=== PATIENT | female | born 1965 | race Caucasian/White ===

== ENCOUNTER 2021-10-25 09:19 | Inpatient (IN) | payer OTHER ==
[2021-10-25] VITALS (11 sets, daily range): BP systolic 100–206; BP diastolic 59–94
[~2021-10-25] VITALS: Ht 147.3 cm; Wt 62.0 kg
[~2021-10-25 09:19] MED LIST: SODIUM CHLORIDE 0.9% 1,000 ML ONE
[2021-10-25] MEDS ORDERED: SODIUM CHLORIDE 0.9% 1,000 ML IV ONE ×2 (09:45→10:00)
[2021-10-25] MEDS ORDERED: AMIT-166 PO (10:17)
[2021-10-25] MEDS ORDERED: NIFE-129 PO (10:17)
[2021-10-25] MEDS ORDERED: AMLO-258 PO (10:17)
[2021-10-25] MEDS ORDERED: LOSA-30 PO (10:17)
[2021-10-25] MEDS ORDERED: CARV25 PO (10:17)
[2021-10-25] MEDS ORDERED: DIAZEPAM 5 MG TABLET PO ONE (12:00)
[2021-10-25] MEDS ORDERED: ASPIRIN 81 MG CHEWABLE TABLET PO ONE (12:00)
[2021-10-25] MEDS ORDERED: DiphenhydrAMINE HCL 50 MG CAPSULE PO ONE (12:00)
[2021-10-25] MEDS ORDERED: DIAZEPAM 5 MG TABLET ONE (15:32)
[2021-10-25] MEDS ORDERED: ASPIRIN 81 MG CHEWABLE TABLET ONE (15:32)
[2021-10-25] MEDS ORDERED: DiphenhydrAMINE HCL 50 MG CAPSULE ONE (15:32)
[2021-10-25] MEDS ORDERED: IOHEXOL 300 MG/ML 100 ML VIAL ONE (16:42)
[2021-10-25] MEDS ORDERED: SODIUM BICARBONATE 50 MEQ/50 ML VIAL ONE (16:43)
[2021-10-25] MEDS ORDERED: LIDOCAINE/PF 1% 30 ML VIAL ONE (16:43)
[2021-10-25] MEDS ORDERED: HEPARIN SODIUM 1000 UNITS/NS 1,000 ML ONE (16:43)
[2021-10-25] MEDS ORDERED: FentaNYL CITRATE PF 100 MCG/2 ML VIAL ONE (17:13)
[2021-10-25] MEDS ORDERED: MIDAZOLAM HCL 2 MG/2 ML VIAL ONE (17:13)
[2021-10-25] MEDS ORDERED: HEPARIN SODIUM 1000 UNITS/NS 1,000 ML IARTER ONE (17:15)
[2021-10-25] MEDS ORDERED: LIDOCAINE 1% 30 ML/SOD BICARB 8.4% 4 ML SQ ONE (17:15)
[2021-10-25] MEDS ORDERED: IOHEXOL 300 MG/ML 100 ML VIAL IARTER ONE (17:15)
[2021-10-25] MEDS ORDERED: HydrALAZINE HCL 20 MG/ML VIAL ONE (17:24)
[2021-10-25] MEDS ORDERED: MIDAZOLAM HCL 2 MG/2 ML VIAL IVP ONE ×2 (17:30→17:45)
[2021-10-25] MEDS ORDERED: HEPARIN SODIUM,PORCINE 1,000 UNITS/ML 10 ML VIAL IVP ONE (17:30)
[2021-10-25] MEDS ORDERED: FentaNYL CITRATE PF 100 MCG/2 ML VIAL IVP ONE ×2 (17:30→17:45)
[2021-10-25] MEDS ORDERED: TICAGRELOR 90 MG TABLET ONE (17:45)
[2021-10-25] MEDS ORDERED: HydrALAZINE HCL 20 MG/ML VIAL IVP ONE (17:45)
[2021-10-25] MEDS ORDERED: TICAGRELOR 90 MG TABLET PO ONE (18:00)
[2021-10-25] MEDS ORDERED: ATORVASTATIN CALCIUM 40 MG TABLET PO ONE (18:45)
[2021-10-25] MEDS ORDERED: INSULIN LISPRO 100 UNITS/ML SQ PRN (19:00)
[2021-10-25] MEDS ORDERED: DEXTROSE 50%-WATER 25 GM/50 ML SYRINGE IVP PRN (19:00)
[2021-10-25] MEDS ORDERED: PNEUMOCOCCAL VACCINE POLYVALENT 0.5 ML VIAL [PPSV23] IM. ONE (19:45)
[2021-10-25] MEDS ORDERED: DEXTROSE 5%-LACTATED RINGERS 1,000 ML IV ONE (21:30)
[2021-10-25] MEDS ORDERED: ONDANSETRON HCL 4 MG/2 ML VIAL IVP PRN (21:30)
[2021-10-25 22:57] LABS: GLUCOMETER DEV NAME(LOC) 5S.1B; GLUCOSE,POINT OF CARE 66 MG/DL (70-110)
[2021-10-25 22:57] LABS: GLUCOMETER DEV NAME(LOC) 5S.1B; GLUCOSE,POINT OF CARE 151 MG/DL (70-110)
[2021-10-26 03:19] VITALS: BP 106/51
[2021-10-26 06:46] LABS: GLUCOMETER DEV NAME(LOC) 5S.1B; GLUCOSE,POINT OF CARE 89 MG/DL (70-110)
[2021-10-26 07:05] LABS: BASOPHILS % (AUTO) 0.3 % (0.0-2.0); EOSINOPHILS % (AUTO) 0 % (1.0-6.0); HEMATOCRIT 29.8 % (36-46); HEMOGLOBIN 10.1 g/dL (12.0-16.0); LYMPHOCYTES # (AUTO) 0.9 K/uL (1.0-4.8); LYMPHOCYTES % (AUTO) 14.5 % (22.0-44.0); MEAN CORPUSCULAR HEMOGLOBIN 30.1 pg (26.0-34.0); MEAN CORPUSCULAR HGB CONC 33.9 G/dL (31.0-37.0); MEAN CORPUSCULAR VOLUME 89 fL (80-100); MONOCYTES # (AUTO) 0.4 K/uL (0.1-1.0); MONOCYTES % (AUTO) 5.7 % (2.0-9.0); NEUTROPHILS # (AUTO) 5.2 K/uL (1.8-7.7); NEUTROPHILS % (AUTO) 79.5 % (40.0-70.0); PLATELET COUNT (AUTO) 261 K/uL (150-450); RED BLOOD CELL COUNT(AUTO) 3.36 MIL/uL (4.00-5.20); RED CELL DISTRIBUTION WIDTH 13.9 % (11.5-14.5)
[2021-10-26 07:11] VITALS: BP 115/62
[2021-10-26 07:32] LABS: ANION GAP 5 mmol/L (8-16); CALCIUM, TOTAL 8.6 mg/dL (8.8-10.5); CARBON DIOXIDE 30 mmol/L (22-29); CHLORIDE 106 mmol/L (98-107); CREATININE 0.68 mg/dL (0.60-1.30); GLUCOSE,RANDOM 96 mg/dL (70-110); POTASSIUM 3.9 mmol/L (3.5-5.1); SODIUM SERUM 141 mmol/L (136-145); UREA NITROGEN, BLOOD 22 mg/dL (7-18)
[2021-10-26 07:37] LABS: GLOMERULAR FILTR. RATE CALC > 60 mL/min (>60)
[2021-10-26 08:44] VITALS: BP 122/67
[2021-10-26 08:52] VITALS: BP 122/64
[2021-10-26] MEDS ORDERED: METOPROLOL SUCCINATE 25 MG ER TABLET PO SCH (09:00)
[2021-10-26] MEDS ORDERED: ATORVASTATIN CALCIUM 40 MG TABLET PO SCH (09:00)
[2021-10-26] MEDS ORDERED: TICAGRELOR 90 MG TABLET PO SCH (09:00)
[2021-10-26] MEDS ORDERED: ACETAMINOPHEN 325 MG TABLET PO PRN (10:30)
[2021-10-26] MEDS ORDERED: TICA90TA PO (10:53)
[2021-10-26] MEDS ORDERED: METO25XL PO (10:53)
[2021-10-26] MEDS ORDERED: ATOR40TA71 PO (10:53)
[2021-10-26] MEDS ORDERED: ASPI81 PO (10:53)
[2021-10-26 11:45] VITALS: BP 123/58
[2021-10-27 07:02] LABS: GLUCOMETER DEV NAME(LOC) 5N.1C; GLUCOSE,POINT OF CARE 75 MG/DL (70-110)
== END 2021-10-26 14:05 | disposition home or self-care (01) | DRG 175 ==
LOC: CATHLAB 09:19 → 5S 18:00
PROVIDERS: ADMIT Internal Medicine; ATTEND Internal Medicine Interventional Cardiology
PROC: 4A023N7 Measurement of Cardiac Sampling and Pressure, Left Heart, Percutaneous Approach (ICD-10-PCS; principal; 2021-10-25)
PROC: 027034Z Dilation of Coronary Artery, One Artery with Drug-eluting Intraluminal Device, Percutaneous Approach (ICD-10-PCS; 2021-10-25)
PROC: B211YZZ Fluoroscopy of Multiple Coronary Arteries using Other Contrast (ICD-10-PCS; 2021-10-25)
PROC: B41F1ZZ Fluoroscopy of Right Lower Extremity Arteries using Low Osmolar Contrast (ICD-10-PCS; 2021-10-25)
PROC: B241ZZ3 Ultrasonography of Multiple Coronary Arteries, Intravascular (ICD-10-PCS; 2021-10-25)
DX: I25.110 Atherosclerotic heart disease of native coronary artery with unstable angina pectoris (principal); I24.9 Acute ischemic heart disease, unspecified; E16.2 Hypoglycemia, unspecified; E78.5 Hyperlipidemia, unspecified; I10 Essential (primary) hypertension; Z79.899 Other long term (current) drug therapy
CPT/HCPCS: 80048; 80061; 82962; 83735; 84484; 85025; 87081; 93005; J0360; J1644; J2250; J2405; J3010; J3490; J7030; Q9967